=== PATIENT | male | born 1990 | race Two or more races ===

== ENCOUNTER 2024-08-30 08:36 | Emergency (ER) | payer MEDICAID, SELFPAY ==
[2024-08-30 08:37] VITALS: BMI 25.6
[2024-08-30 08:41] VITALS: BP 129/87; PULSE 79; RESP 19; TEMP 36.7; O2SAT 99
--- NOTE | 2024-08-30 08:43 | XR_ITS ---
Examination: Wrist, right 3 views Technique: Wrist AP, oblique, lateral 3 views Date and time of exam: August 30, 2024 0859 hours INDICATIONS: Onset wrist pain today. FINDINGS: No fracture, acute or dislocation Fracture base fifth metacarpal Mild narrowing radiocarpal and intercarpal joints IMPRESSION: Mild osteoarthritis
--- NOTE | 2024-08-30 08:45 | PD.EDHAND ---
Upper Extremity Injury RME/HPI General Chief Complaint: Hand/Wrist Problems Stated Complaint: RIGHT WRIST PAIN Time Seen by Provider: 08/30/24 08:53 Source: patient Arrival date/time: 08/30/24 08:36 33-year-old male with no known medical history presents to the emergency room with a chief complaint of tenderness and swelling to the right wrist x 1 day. Patient believes he slept on it wrong. Mode of arrival: ambulatory Limitations: no limitations Related Data Previous Rx's ?Medication ?Instructions ?Recorded naproxen 500 mg tablet 500 mg PO BID PRN pain #30 tabs 12/24/22 tamsulosin 0.4 mg capsule 0.4 mg PO QDAY #30 caps 12/24/22 Allergies Allergy/AdvReac Type Severity Reaction Status Date / Time No Known Allergies Allergy Verified 08/30/24 08:39 Review of Systems Review of Systems Systems Reviewed: All systems reviewed, normal except as documented Constitutional Constitutional: Reports system reviewed and no additional complaints, except as documented, Denies fatigue, Denies fever(s), Denies headache(s) and Denies weakness Eyes Eyes: Reports system reviewed and no additional complaints, except as documented, Denies blurry vision and Denies change in vision ENT Ears, Nose, Mouth, and Throat: Reports system reviewed and no additional complaints, except as documented, Denies otalgia, Denies headache(s), Denies nasal congestion, Denies throat swelling and Denies vertigo Cardiovascular Cardiovascular: Reports system reviewed and no additional complaints, except as documented, Denies chest pain, Denies dyspnea and Denies dyspnea on exertion Respiratory Respiratory: Reports system reviewed and no additional complaints, except as documented, Denies chest congestion, Denies cough, Denies dyspnea, Denies dyspnea on exertion and Denies wheezing Gastrointestinal Gastrointestinal: Reports system reviewed and no additional complaints, except as documented, Denies abdominal pain, Denies cramping, Denies nausea and Denies vomiting Genitourinary Genitourinary: Reports system reviewed and no additional complaints, except as documented, Denies dysuria and Denies hematuria Musculoskeletal Musculoskeletal: Reports system reviewed and no additional complaints, except as documented, Reports arthralgias and Denies back pain Integumentary/Breasts Skin/Breast: Reports system reviewed and no additional complaints, except as documented and Denies wounds Neurologic Neurologic: Reports system reviewed and no additional complaints, except as documented, Denies confusion, Denies headache(s), Denies lack of coordination, Denies vertigo and Denies weakness Psychiatric Psychiatric: Reports system reviewed and no additional complaints, except as documented, Denies anxiety, Denies confusion, Denies depression, Denies paranoia, Denies suicidal ideation and Denies tactile hallucinations Endocrine Endocrine: Reports system reviewed and no additional complaints, except as documented and Denies fatigue Hematologic/Lymphatic Hematologic/Lymphatic: Reports system reviewed and no additional complaints, except as documented and Denies lymphadenopathy Allergic/Immunologic Allergic/Immunologic: Reports system reviewed and no additional complaints, except as documented, Denies throat swelling, Denies urticaria and Denies wheezing Past Medical History Past Medical History CARDIAC: Negative Congestive Heart Failure RESPIRATORY: Negative Chronic Obstructive Pulmonary Disease (COPD) GENITOURINARY: Negative Renal Disease ENDOCRINE: Negative Diabetes Mellitus Type 1 or Diabetes Mellitus Type 2 Social History SMOKING STATUS: Never smoker SUBSTANCE USE: marijuana ED Exam General Limitations: Present no limitations General appearance: Present alert and in no apparent distress Head Head exam: Present atraumatic Eye Eye exam: Present normal appearance, PERRL and EOMI ENT ENT exam: Present normal exam, normal oropharynx and mucous membranes moist Neck Neck exam: Present normal inspection, full ROM and trachea midline Chest Chest inspection: Present normal inspection and symmetric chest wall rise Respiratory Respiratory exam: Present normal lung sounds bilaterally Cardiovascular Cardiovascular exam: Present regular rate, normal rhythm and normal heart sounds Abdominal Exam Abdominal exam: Present soft and normal bowel sounds Extremities Exam Extremities exam: Present normal inspection and full ROM Expanded Upper Extremity Exam Shoulder exam: Present normal inspection Arm exam: Present normal inspection Elbow exam: Present normal inspection Forearm/Wrist exam: Present tenderness and swelling; Absent full ROM Hand exam: Present normal inspection Vascular exam: Normal capillary refill Back Exam Back exam: Present normal inspection and full ROM Neurological Exam Neurological exam: Present alert, oriented X3 and CN II-XII intact Psychiatric Psychiatric exam: Present normal affect and normal mood Skin Skin exam: Present warm, dry, intact and normal color Course Quality Measures none Orders Category Date Time Status XR wrist comp RT min 3V Stat Exams 08/30/24 08:43 Completed Ketorolac Inj [Toradol Inj] Med 08/30/24 10:47 Discontinued 30 mg .ROUTE .STK-MED ONE Vital Signs Vital signs: Vital Signs Temperature 98.0 F 08/30/24 08:41 Pulse Rate 79 08/30/24 08:41 Respiratory Rate 19 08/30/24 08:41 Blood Pressure 129/87 H 08/30/24 08:41 Pulse Oximetry (%) 99 08/30/24 08:41 Oxygen Delivery Method Room Air 08/30/24 08:41 O2 saturation 99% within normal limits Extremity Injury MDM Narrative MDM Narrative:: 33-year-old male with no known medical history presents to the emergency room with a chief complaint of tenderness and swelling to the right wrist x 1 day. Patient believes he slept on it wrong. Patient is hemodynamically stable and in no apparent distress Physical examination shows tenderness and pain to the patient's right hand and wrist area. There is what looks to be a deformity to the hand. Patient states that 16 years ago he broke his wrist and hand and never went to the doctor and since then it healed incorrectly. X-ray of the right wrist was completed and was negative for any acute fracture or dislocation however there was an old fracture to the base of fifth metacarpal. It also shows some mild osteoarthritis. A splint was placed for comfort pain medication was given and the patient was educated to follow-up with primary care provider return to the emergency room for any evidence of worsening signs or symptoms Patient data External records reviewed:: [facility] previous records Clinical information provided by:: patient Social determinants that could affect healthcare access:: none Patient has the following chronic illnesses:: No chronic illness How is presenting disease/condition affected by chronic disease/condition?: no chronic disease Evaluation data The following diagnostics were reviewed and interpreted by me:: lab results and radiology exam(s) Lab and/or radiology exams considered but not ordered:: Labs radiology exams considered and ordered Interpretation Summary: X-ray right wrist-FINDINGS: No fracture, acute or dislocation Fracture base fifth metacarpal Mild narrowing radiocarpal and intercarpal joints IMPRESSION: Mild osteoarthritis Medications / Prescriptions Medications or Prescriptions considered but not ordered:: No medication given Medication administrations:: Medication Administration History Discontinued Medications Ketorolac Tromethamine (Ketorolac Inj 30 Mg/Ml Vial) Confirm Administered Dose 30 mg .ROUTE .[employer]-[facility] ONE Stop: 08/30/24 10:48 No medication given Consultations Consultation(s) initiated? (list below): No Diagnosis Upper Extremity Injury Differential Diagnosis: sprain and strain of wrist, fracture of wrist and other Most likely diagnosis given after review of the tests above:: Sprain and strain of wrist Admission Indicated Admission indicated?: not indicated Admission Request Was there a request for admission?: No Disposition Plan Disposition Plan: Discharge Discharge Attestation Discharge Attestation: The patient and all family members were given an opportunity to ask questions and understood the discharge instructions. Discharge instructions specifically effects, indications for sooner follow up or return to the emergency department, and the expected course of current diagnosis. Patient condition: Stable Discharge Plan Plan Patient Disposition: HOME (Self Care) Discharge Disposition comment: Stable Prescriptions/Referrals Prescriptions/Med Rec: No Action naproxen 500 mg tablet 500 mg PO BID PRN (Reason: pain) Qty: 30 0RF tamsulosin 0.4 mg capsule 0.4 mg PO QDAY Qty: 30 0RF Problem List Clinical Impression: Sprain and strain of wrist Patient/Caregiver Discharge Instructions Print Language: Malay Stand Alone Forms: Che Award Info., Patient Portal Info Letter
[2024-08-30] MEDS: KETOROLAC INJ 30 MG/ML VIAL IM (10:50)
== END 2024-08-30 16:15 | disposition home or self-care (01) ==
LOC: SERX 16:55
PROVIDERS: Emergency Provider Emergency Medicine; PCP Family Medicine
DX: S63.501A Unspecified sprain of right wrist, initial encounter (principal); S66.911A Strain of unspecified muscle, fascia and tendon at wrist and hand level, right hand, initial encounter; M19.031 Primary osteoarthritis, right wrist; X58.XXXA Exposure to other specified factors, initial encounter
CPT/HCPCS: 73110; 96372; 99283; J1885